=== PATIENT | male | born 1995 | race Two or more races ===

== ENCOUNTER 2019-01-27 23:19 | Emergency (ER) | payer MEDICAID ==
[~2019-01-27] VITALS: Ht 172.7 cm; Wt 86.2 kg
[2019-01-28] MEDS ORDERED: MORPHINE SULF INJ 2 MG/ML SYRINGE 1ML IV ONE (02:50)
[2019-01-28] MEDS ORDERED: ONDANSETRON HCL 4 MG/2 ML VIAL IV ONE (02:51)
[2019-01-28 03:38] VITALS: BP 118/65
[2019-01-28] MEDS ORDERED: MORPHINE SULFATE 4 MG/ML SYR/VIAL IV ONE (04:02)
== END 2019-01-28 01:46 | disposition short-term general hospital (02) ==
LOC: EDBD 23:19 → ER 23:22
DX: S83.125A Posterior dislocation of proximal end of tibia, left knee, initial encounter (principal); F17.210 Nicotine dependence, cigarettes, uncomplicated; F12.10 Cannabis abuse, uncomplicated; X50.1XXA Overexertion from prolonged static or awkward postures, initial encounter; Y93.01 Activity, walking, marching and hiking; Y92.89 Other specified places as the place of occurrence of the external cause; Y99.8 Other external cause status
CPT/HCPCS: 73590; 73700; 96374; 96375; 96376; 99285; J2270; J2405